=== PATIENT | female | born 1980 | race Caucasian/White ===

== ENCOUNTER 2024-07-04 10:57 | Emergency (ER) | payer SELFPAY ==
[2024-07-04 11:26] VITALS: BP 136/83; PULSE 72; RESP 18; TEMP 36.6; O2SAT 92; BMI 26.6
--- NOTE | 2024-07-04 11:41 | XR_ITS ---
WS: [id number] RIGHT HIP HISTORY: pain COMPARISON: None available. Right hip: No acute fracture or dislocation. No soft tissue abnormality. No destructive process. XR/XR hip RT 2-3V wo/w pel* [id number] IMPRESSION: 1. No hip fracture. 2. No significant arthropathy RIGHT hip.
--- NOTE | 2024-07-04 11:41 | XR_ITS ---
WS: [id number] LUMBAR SPINE: 3 VIEWS TECHNIQUE: AP, lateral and L5-S1 spot. HISTORY: pain COMPARISON: None available. Lumbar vertebra are normally aligned. L5-S1 disc space is rudimentary. Normal alignment otherwise and no fracture. SI joints are symmetric bilaterally. No soft tissue abnormalities. XR/XR lumbar spine 2-3V* [id number] IMPRESSION: 1. No lumbar spine fracture. 2. Small rudimentary L5-S1 disc space.
--- NOTE | 2024-07-04 13:03 | ED_ITS ---
HPI - Back Pain/Injury General: Chief Complaint: Back Pain/Injury Stated Complaint: hip and back pain Time Seen by Provider: 07/04/24 12:59 History of Present Illness: 44-year-old female presents to the [facility] ency room with complaint of right hip and back pain. Few weeks ago she had injured her back it seemed to be doing fine and then over the last day or 2 is markedly worsening without any specific triggering event. She has no difficulties fecal incontinence or urinary retenti on. Pain radiates to the buttock to the lateral portion of the right thigh. Associated symptoms: Deny abdominal pain, chills, dysuria, fever(s) or urinary urgency Related Data Previous Rx's Medication Instructions Recorded diclofenac sodium 75 mg 75 mg PO Q12H PRN pain #20 tabs 07/04/24 tablet,delayed release hydrocodone 5 mg-acetaminophen 325 1 tab PO Q6H PRN pain #25 tabs 07/04/24 mg tablet prednisone 20 mg tablet 20 mg PO TID #15 tabs 07/04/24 pregabalin 75 mg capsule (Lyrica) 75 mg PO BID #60 caps 07/04/24 tizanidine 4 mg tablet 4 mg PO Q6H PRN muscle spasticity 07/04/24 #20 tabs Allergies Allergy/AdvReac Type Severity Reaction Status Date / Time No Known Allergies Allergy Verified 07/04/24 11:29 Review of Systems Const: Denies: fever(s) or chills Card: Denies: chest pain Resp: Denies: dyspnea GI: Denies: abdominal pain : Denies: dysuria, urinary frequency or urinary urgency Musc: Reports: back pain and extremity pain; Denies: neck pain Skin/Breast: Denies: rash Physical Exam Const: GENERAL APPEARANCE: cooperative ORIENTATION/CONSCIOUSNESS: Yes awake, Yes oriented to person, Yes oriented to place and Yes oriented to time HENMT: COMMON NORMALS: normocephalic, atraumatic and hearing grossly normal bilaterally HEAD & SCALP: normocephalic and atraumatic Resp: COMMON NORMALS: normal respiratory effort, No retractions, No use of accessory muscles and clear to auscultation bilaterally AUSCULTATION: clear to auscultation bilaterally Cardio: COMMON NORMALS: regular rate, regular rhythm and No murmurs present (Cardio) RATE: regular rate RHYTHM: regular rhythm GI: COMMON NORMALS: Soft to palpation and No hepatosplenomegaly present AUSCULTATION: Yes normoactive bowel sounds PALPATION: Yes Soft to palpation, No Tenderness to palpation present (GI), No Guarding due to palpation present (GI) and Yes No hepatosplenomegaly present Extremity: COMMON NORMALS: normal to inspection, capillary refill normal, no clubbing, cyanosis or edema, no calf tenderness and no pedal edema Neuro: SENSORIUM/ORIENTATION: Yes oriented to person, Yes oriented to place and Yes oriented to time OTHER: Straight leg raising negative deep tendon reflexes plus to 4 bilaterally at the patellar tendons. Dorsum plantarflexion 5 5 sensation lower extremities normal Skin: COMMON NORMALS: no rashes or lesions noted GENERAL SKIN EXAM: no rashes or lesions noted Course Vital Signs: Vital signs: Vital Signs Temperature 97.9 F 07/04/24 11:26 Pulse Rate 50 L 07/04/24 16:19 Respiratory Rate 16 07/04/24 14:51 Blood Pressure 108/64 07/04/24 16:19 Pulse Oximetry 94 07/04/24 16:19 Oxygen Delivery Me thod Room Air 07/04/24 11:26 MDM - Back Pain/Injury Medical Decision Making No significant finding on imaging. Suspect patient may have nerve root irritation at L4-5 L3-4. Discharge patient home on steroids tizanidine also started Lyrica. Use diclofenac and hydrocodone as needed encouraged her to follow-up with her primary care doctor to reevaluate for need for advanced imaging if she does not improve with the medications given Medical Records I reviewed the patient's medical records. Labs I reviewed the patient's lab results. Radiology Impressions Hip/Pelvis X-Ray 07/04/24 11:41 IMPRESSION: 1. No hip fracture. 2. No significant arthropathy RIGHT hip. Lumbar Spine X-Ray 07/04/24 11:41 IMPRESSION: 1. No lumbar spine fracture. 2. Small rudimentary L5-S1 disc space. All radiology interpretation(s) finalized by discharge Discharge Plan Discharge Patient Disposition: Home Clinical Impression: Lumbar radiculopathy Condition: Stable Prescriptions: New tizanidine 4 mg tablet 4 mg PO Q6H PRN (Reason: muscle spasticity) Qty: 20 0RF Rx Instructions: do not exceed 3 doses per 24 hrs hydrocodone-acetaminophen 5-325 mg tablet 1 tab PO Q6H PRN (Reason: pain) Qty: 25 0RF prednisone 20 mg tablet 20 mg PO TID Qty: 15 0RF Rx Instructions: 1 p.o. 3 times daily x3 days, 1 p.o. twice daily x2 days, 1 p.o. daily x2 days diclofenac sodium 75 mg tablet,delayed release (DR/EC) 75 mg PO Q12H PRN (Reason: pain) Qty: 20 0RF pregabalin [Lyrica] 75 mg capsule 75 mg PO BID Qty: 60 0RF Discharge Orders: Discharge ED (Routine); Ordered 07/04/24 Ordered By: Tomasz Leavitt Referrals: Sherman Sanchez MD [Primary Care Provider] - Discharge Diet: Advance as tolerated Discharge Activity: Limit activity as instructed Patient Instructions: Lumbar Radiculopathy (ED), Lower Back Exercises (ED), Opioid Safety, Pain Management Activity Restrictions/Additional Instructions: Thank you for choosing [facility] for your healthcare needs today. It is very important that you follow up as instructed or that you return to the Emergency Department should you have concerns or if your condition changes or worsens in any way. You are seen in the emergency room with low back pain with pain radiating to your right leg. There is no sign of cauda equina (impingement on the spinal cord). You are given medications emergency room recommend you start the steroid taper orally tomorrow. You can also use the other medications as needed. The Lyrica you should take regularly. configuration release manager will make arrangements for you to follow-up with orthopedic spine surgery. Coding Level of Care Code ED [employer] for Jonel Bond
[2024-07-04 13:29] VITALS: BP 125/78; PULSE 57; O2SAT 96
[2024-07-04 13:37] VITALS: RESP 17; O2SAT 91
[2024-07-04] MEDS: ketorolac 30 mg/mL INJ IVP (13:37)
[2024-07-04] MEDS: dexamethasone 10 mg/mL INJ IV (13:37)
[2024-07-04] MEDS: morphine 4 mg/mL SDV 1 mL IVP ×2 (13:37→14:51)
[2024-07-04] MEDS: orphenadrine 30 mg/mL Inj 2 mL 60 MG IV (13:38)
[2024-07-04 14:51] VITALS: RESP 16; O2SAT 95
[2024-07-04 16:19] VITALS: BP 108/64; PULSE 50; O2SAT 94
== END 2024-07-04 14:46 | disposition home or self-care (01) ==
PROVIDERS: Emergency Provider Family Medicine; PCP Family Medicine
DX: M54.16 Radiculopathy, lumbar region (principal)
CPT/HCPCS: 36415; 72100; 73502; 96374; 96375; 96376; 99284; J1100; J1885; J2270; J2360